=== PATIENT | female | born 1995 | race Caucasian/White ===

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

== ENCOUNTER 2017-04-25 13:38 | Emergency (ER) | payer OTHER ==
[~2017-04-25] VITALS: Ht 162.6 cm; Wt 63.5 kg
[2017-04-25 16:05] LABS: PREGNANCY-SERUM NEGATIVE (NEGATIVE)
[2017-04-25 16:07] LABS: URINE APPEARANCE HAZY; URINE BILIRUBIN NEGATIVE (NEG); URINE BLOOD NEGATIVE (NEG); URINE COLOR YELLOW; URINE GLUCOSE (UA) NEGATIVE (NEG); URINE KETONE NEGATIVE (NEG); URINE LEUKOCYTE ESTERASE POSITIVE (NEG); URINE NITRITE NEGATIVE (NEG); URINE PH 6.5 (5.0-8.0); URINE PROTEIN NEGATIVE (NEG); URINE SPECIFIC GRAVITY 1.015 (1.003-1.030)
[2017-04-25 16:13] LABS: URINE MUCUS 1+; URINE RBC 0-1 /[HPF] (0-5)
[2017-04-25 16:21] LABS: BLOOD UREA NITROGEN 10 mg/dl (6-24); CALCIUM 8.4 mg/dl (8.5-10.5); CARBON DIOXIDE-VENOUS 24 mmol/L (22-32); CHLORIDE 110 mmol/l (96-110); CREATININE 0.76 mg/dl (0.50-1.10); GLUCOSE 78 mg/dL (70-110); LIPASE 107 U/L (73-393); SODIUM 138 mmol/L (135-145); eGFR VALUE FOR BLACK >90 mL/Min
[2017-04-25 16:23] LABS: BASO % 0.2 % (0-2); EOS % 1.5 % (0-7); EOSINOPHIL ABSOLUTE COUNT 0.1 tho/cmm (0.0-0.7); HCT-HEMATOCRIT 36.2 % (34.0-49.0); HGB-HEMOGLOBIN 12.6 gm/dl (12.0-15.5); LYMPH % 39.4 % (20-45); LYMPH ABSOLUTE COUNT 2.1 tho/cmm (0.8-4.5); MCH (MEAN CORPUSCULAR HGB) 29.6 pg (28.0-32.0); MCHC MEAN CORPUSCULAR HGB CONC 34.8 % (32.0-36.0); MCV (MEAN CELL VOLUME) 85.2 fl (82.0-96.0); MEAN PLATELET VOLUME 9.8 cmc (9.4-12.4); MONO % 7.7 % (0-12); MONOCYTE ABSOLUTE COUNT 0.4 tho/cmm (0.0-1.2); NEUTROPHIL ABSOLUTE COUNT 2.7 tho/cmm (1.6-8.0); NEUTROPHIL-AUTOMATED 2.7 tho/cmm (1.6-8.0); NEUTROPHILS % 51.2 % (40-80); PLATELET COUNT 189 tho/cmm (150-450); RED BLOOD COUNT 4.25 mil/cmm (4.00-5.20); WHITE BLOOD COUNT 5.3 tho/cmm (4.0-10.0)
[2017-04-25 16:23] LABS: ANION GAP 8 mmol/L (0-20); C-REACTIVE PROTEIN <0.3 mg/dl (0-0.9); POTASSIUM 4.2 mmol/L (3.7-5.1)
== END 2017-04-25 18:18 ==
LOC: EDMED 13:38
PROVIDERS: Physician Assistant
DX: K59.00 Constipation, unspecified (principal); R10.9 Unspecified abdominal pain; R10.817 Generalized abdominal tenderness; Z87.19 Personal history of other diseases of the digestive system
CPT/HCPCS: J1642; J2270; J2405; J7030; Q9967